=== PATIENT | male | born 1985 | race Hispanic/Latino ===

== ENCOUNTER 2018-01-20 10:45 | Emergency (ER) | payer SELFPAY ==
[2018-01-20 10:45] VITALS: BMI 21.5
[2018-01-20 11:35] VITALS: RESP 18; O2SAT 99
[2018-01-20] MEDS ORDERED: Tetracaine 0.5% Ophth (OR ONLY) OD ONE (12:12)
[2018-01-20] MEDS ORDERED: Tetanus/Diphtheria Toxoids 0.5 ml Syringe IM ONE ×2 (12:12→12:41)
[2018-01-20] MEDS ORDERED: Fluorescein 1 mg Ophthalmic Strip OD ONE (12:13)
[2018-01-20] MEDS ORDERED: Fluorescein 1 mg Ophthalmic Strip ONE ×2 (12:17→12:23)
[2018-01-20] MEDS ORDERED: Tetracaine 0.5% Ophth (OR ONLY) ONE (12:17)
--- NOTE | 2018-01-20 12:17 | C.PDOC ---
History Of Present Illness 32 y/o male comes in for evaluation of right eye pain and light sensitivity, gradually developing since this morning. Patient is a construction site crossing guard and states he felt something fly into the eye earlier today. Denies contact use. Patient tried to flush the eye with water, with no relief. Now complains he is unable to open the right eye due light sensitivity. Denies fever, chills, headache, dizziness, pain on extraocular movement. Time Seen by Provider: 01/20/18 11:45 Chief Complaint (Nursing): Eye Problem History Per: Patient History/Exam Limitations: no limitations Onset/Duration Of Symptoms: Hrs Current Symptoms Are (Timing): Still Present Past Medical History Reviewed: Historical Data, Nursing Documentation, Vital Signs Vital Signs: Last Vital Signs Temp 97.6 F 01/20/18 12:52 Pulse 72 01/20/18 12:52 Resp 18 01/20/18 12:52 BP 120/70 01/20/18 12:52 Pulse Ox 99 01/20/18 12:52 - Medical History PMH: No Chronic Diseases Surgical History: No Surg Hx Family History: States: Unknown Family Hx - Social History Hx Tobacco Use: No Hx Alcohol Use: No Hx Substance Use: No - Immunization History Hx Tetanus Toxoid Vaccination: No Hx Influenza Vaccination: No Hx Pneumococcal Vaccination: No Review Of Systems Eyes: Positive for: Pain, Other (Foreign body sensation, light sensitivity) Physical Exam - Physical Exam Appears: Well, Non-toxic, No Acute Distress Skin: Normal Color, Warm, Dry Head: Normacephalic Eye(s): bilateral: EOMI (o pain or limitation on extraocular movement), right: Other (diffuse conrneal injection, tearing mild inferior chemosis, fleuoresceine uptake from 3-7 oclock. No evidence of corbeal FB.) Ear(s): Bilateral: Normal Nose: No Flaring, No Discharge, No Deformity, No Tenderness Oral Mucosa: Moist Tongue: Normal Appearing Lips: Normal Appearing Throat: No Erythema, No Drooling Neck: Trachea Midline, No Midline Cervical Tenderness, No Paracervical Tenderness, No Step Off Deformity, Supple Neurological/Psych: Oriented x3, Normal Speech ED Course And Treatment O2 Sat by Pulse Oximetry: 99 (RA) Pulse Ox Interpretation: Normal Progress Note: On re-eval, pt is afebrile, hemodynamicaly stable. Non-toxic. Pt repots, moderate improvement in Right eye pain, able to open eye now without discomfort after tetracaine drops applied. Head: AT/NC. Right eye: exam c/w small area of supeior orbital chemosis with diffuse corneal abrasion. No evidence of corneal FB. NO pain or limitation on extraocular movement. VA now repeated: Right 20/50, Letf 20/20, B/L 20/30. Neck: Supple, (-) midline tenderness. tetanus given. EYe patch applied. Pt advised on course of ds. re.f to f/u with opht in 1-2 day sfor re-eval. return to ED if any worsening or new changes. Disposition Counseled Patient/Family Regarding: Diagnosis, Need For Followup, Rx Given - Disposition Referrals: Jose Daniel Duran MD [Staff Provider] - Disposition: HOME/ ROUTINE Disposition Time: 12:38 Condition: STABLE Additional Instructions: Eye patch for 1 week Take medication as prescribed Follow up with Ophthalmology in 2-3 days for re-evaluation. 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 - Scribe Statement The provider has reviewed the documentation as recorded by the Scribe (Monserrat Garner) All medical record entries made by the Scribe were at my direction and personally dictated by me. I have reviewed the chart and agree that the record accurately reflects my personal performance of the history, physical exam, medical decision making, and the department course for this patient. I have also personally directed, reviewed, and agree with the discharge instructions and disposition.
[2018-01-20 12:58] VITALS: BP 120/70; PULSE 72; TEMP 97.6
== END 2018-01-20 12:53 | disposition home or self-care (01) ==
LOC: C.ER 10:45
DX: S05.01XA Injury of conjunctiva and corneal abrasion without foreign body, right eye, initial encounter (principal); X58.XXXA Exposure to other specified factors, initial encounter